=== PATIENT | male | born 1990 | race African-American/Black ===

== ENCOUNTER 2022-07-24 01:24 | Emergency (ER) | payer SELFPAY ==
--- NOTE | 2022-07-24 01:57 | ER ---
Nurse's Notes [facility] Name: Gianni Christianson Age: 32 yrs Sex: Male : 1990 Arrival Date: 07/24/2022 Time: 01:26 Bed 7 Private MD: Diagnosis: Unspecified injury of head, initial encounter;Head pain Presentation: 07/24 01:33 Chief complaint: Patient states: right side face and head pain reports was exiting vehicle and hit head on car door pt currently in police custody. Coronavirus screen: Vaccine status: Patient reports being unvaccinated. Ebola Screen: Patient negative for fever greater than or equal to 101.5 degrees Fahrenheit, and additional compatible Ebola Virus Disease symptoms. Initial Sepsis Screen: Does the patient meet any 2 criteria? No. Patient's initial sepsis screen is negative. Does the patient have a suspected source of infection? No. Patient's initial sepsis screen is negative. Risk Assessment: Do you want to hurt yourself or someone else? Patient reports no desire to harm self or others. 01:33 Method Of Arrival: EMS: [facility] 01:33 Acuity: VANIA 4 01:42 Onset of symptoms was July 24, 2022. Triage Assessment: 01:35 General: Appears uncomfortable, well groomed, well developed, Behavior is calm, kl cooperative. Pain: Complains of pain in right rastafarian and right ear Pain currently is 7 out of 10 on a pain scale. Quality of pain is described as aching. EENT: No deficits noted. Neuro: No deficits noted. Level of Consciousness is awake, alert, obeys commands, Oriented to person, place, time, situation, Speech is normal, Facial symmetry appears normal. Cardiovascular: No deficits noted. Respiratory: No deficits noted. GI: No deficits noted. : No deficits noted. Derm:. Historical: - Allergies: 01:35 No Known Allergies; - PMHx: :35 None; - PSHx: 01:35 None; - Immunization history:: Adult Immunizations not up to date. - Social history:: Smoking status: Patient reports the use of cigarette tobacco products, smokes one pack cigarettes per day. Screenin:37 Abuse screen: Denies threats or abuse. Nutritional screening: No deficits noted. Tuberculosis screening: No symptoms or risk factors identified. Fall Risk None identified. Assessment: 01:36 Reassessment: see triage assessment. Vital Signs: 01:33 BP 150 / 107; Pulse 109; Resp 20; Temp 98.6(O); Pulse Ox 100% on R/A; Weight 87.09 kg kl (R); Height 5 ft. 8 in. (172.72 cm) (R); Pain 7/10; 01:41 BP 155 / 101; Pulse 104; Resp 18; Pulse Ox 99% on R/A; kl 01:33 Body Mass Index 29.19 (87.09 kg, 172.72 cm) ED Course: 01:26 Patient arrived in ED. ll3 01:32 Mick Castaneda DO is Attending Physician. ms3 01:32 Boo Dias DO is Referral Physician. ms3 01:35 Triage completed. kl 01:37 No provider procedures requiring assistance completed. Patient did not have IV access kl during this emergency room visit. 01:41 Patient has correct armband on for positive identification. kl Administered Medications: No medications were administered Medication: 01:41 VIS not applicable for this client. Outcome: 01:33 Discharge ordered by . ms3 01:42 Discharged to Law Enforcement kl 01:42 Condition: stable 01:42 Discharge instructions given to patient, police, Instructed on discharge instructions, follow up and referral plans. Demonstrated understanding of instructions, follow-up care. 01:56 Patient left the ED. Signatures: Khushbu Boyer RN ROSA ELENA Mick Castaneda DO DO ms3 Wendy Tipton RN RN ll3
--- NOTE | 2022-07-24 01:57 | EDPHYS ---
Physician Documentation [facility] Name: Gianni Christianson Age: 32 yrs Sex: Male : 1990 Arrival Date: 07/24/2022 Time: 01:26 Bed 7 Private MD: ED Physician Mick Castaneda HPI: 07/24 01:34 This 32 yrs old Male presents to ER via Unassigned with complaints of head injury. ms3 01:34 The patient or guardian reports injury, pain. The complaints affect the right ear and ms3 right mormonism. Context of injury: The problem was sustained outdoors, resulted from pulled from vehicle by police. Onset: The symptoms/episode began/occurred just prior to arrival. Associated signs and symptoms: Loss of consciousness: This patient did not experience any loss of consciousness. Pertinent negatives: nausea, tinnitus, vomiting. Severity of symptoms: At their worst the symptoms were moderate, in the emergency department the symptoms are unchanged. Historical: - Allergies: 01:35 No Known Allergies; kl - PMHx: 01:35 None; kl - PSHx: 01:35 None; kl - Immunization history:: Adult Immunizations not up to date. - Social history:: Smoking status: Patient reports the use of cigarette tobacco products, smokes one pack cigarettes per day. ROS: 01:34 Constitutional: Negative for fever, and chills. Neck: Negative for injury, pain, and ms3 swelling, Cardiovascular: Negative for chest pain, and palpitations. Respiratory: Negative for shortness of breath, cough, wheezing, and pleuritic chest pain, Abdomen/GI: Negative for abdominal pain, nausea, vomiting, diarrhea, and constipation, MS/Extremity: Negative for injury and deformity, Skin: Negative for injury, rash, and discoloration, Neuro: Negative for headache, weakness, numbness, tingling. Right sided head pain Psych: Negative for depression, anxiety, suicide ideation, homicidal ideation, and hallucinations. 01:34 All other systems are negative. Exam: 01:34 Constitutional: This is a well developed, well nourished patient who is awake, alert, ms3 and in no acute distress. Head/Face: Normocephalic, atraumatic. 01:34 ENT: External ear(s): no acute changes, abrasion(s), are not appreciated, TM's: hemotympanum, is not appreciated, on the right, Nose: is normal, Mouth: is normal. 01:34 Neuro: Orientation: is normal, to person, place, time \T\ situation. Mentation: is normal, able to follow commands, Memory: is normal, immediate memory is intact, recent memory is intact, Cranial nerves: CN II- XII are normal as tested, Cerebellar function: is grossly normal, normal finger to nose testing, Motor: moves all fours, Sensation: is normal, no obvious gross deficits. Vital Signs: 01:33 BP 150 / 107; Pulse 109; Resp 20; Temp 98.6(O); Pulse Ox 100% on R/A; Weight 87.09 kg kl (R); Height 5 ft. 8 in. (172.72 cm) (R); Pain 7/10; 01:41 BP 155 / 101; Pulse 104; Resp 18; Pulse Ox 99% on R/A; kl 01:33 Body Mass Index 29.19 (87.09 kg, 172.72 cm) MDM: 01:32 Patient medically screened. ms3 01:34 Data reviewed: vital signs, nurses notes, and as a result, I will discharge patient. ms3 Counseling: I had a detailed discussion with the patient and/or guardian regarding: the historical points, exam findings, and any diagnostic results supporting the discharge/admit diagnosis, the need for outpatient follow up, to return to the emergency department if symptoms worsen or persist or if there are any questions or concerns that arise at home. ED course: Discussed obtaining CT with patient. Risk and benefits were discussed and through shared decision making CT scan was obtained. Discussed physical exam findings with patient. Patient to follow-up with Dr. Dias in 2 to 3 days. Patient understands and agrees with plan. All questions were answered. Return precautions discussed to include worsening symptoms, or any other concerns. Administered Medications: No medications were administered Disposition: 04:35 Chart complete. ms3 Disposition Summary: 07/24/22 01:33 Discharge Ordered Location: Home ms3 Condition: Stable ms3 Diagnosis - Unspecified injury of head, initial encounter ms3 - Head pain ms3 Followup: ms3 - With: Boo Dias DO - When: 2 - 3 days - Reason: Recheck today's complaints Discharge Instructions: - Discharge Summary Sheet ms3 - Head Injury, Adult ms3 Forms: - Medication Reconciliation Form ms3 - Thank You Letter ms3 - Antibiotic Education ms3 - Prescription Opioid Use ms3 Signatures: Khushbu Boyer RN RN kl Sims, Marcus, DO DO ms3 Corrections: (The following items were deleted from the chart) 01:36 01:34 Constitutional: Negative for fever, and chills. Neck: Negative for injury, pain, ms3 and swelling, Cardiovascular: Negative for chest pain, and palpitations. Respiratory: Negative for shortness of breath, cough, wheezing, and pleuritic chest pain, Abdomen/GI: Negative for abdominal pain, nausea, vomiting, diarrhea, and constipation, MS/Extremity: Negative for injury and deformity, Skin: Negative for injury, rash, and discoloration, Neuro: Negative for headache, weakness, numbness, tingling. Psych: Negative for depression, anxiety, suicide ideation, homicidal ideation, and hallucinations, ms3
[2022-07-24 02:29] VITALS: TEMP 98.6
[2022-07-24 02:30] VITALS: BP 155/101; O2SAT 99
== END 2022-07-24 01:56 | disposition home or self-care (01) ==
LOC: ER 01:24
DX: S09.90XA Unspecified injury of head, initial encounter (principal); R51.9 Headache, unspecified
CPT/HCPCS: 99283